=== PATIENT | male | born 1945 | race Caucasian/White ===

== ENCOUNTER 2016-07-14 11:05 | Emergency (ER) | payer MEDICARE, BC, OTHER ==
[~2016-07-14 11:05] MED LIST: APRES25 PO; CELEBREX2 PO; CORDARONE PO; COZ50 PO; KAPIDEX60 MG PO; LEVAQUIN750 MG PO; LIPITOR40 PO; LOP25 PO; NASONEX NAS; NEUR300 PO; NITROSTAT0.4 MG SL; NORV10 PO; NORV5 PO; PEP20 PO; PLAVIX PO; PRAVAC PO; PROTONIX PO; TOPXL25 PO; XARELTO15 MG PO; [UNRECOGNIZED DRUG - OTHER] OP
[2016-07-14 11:59] LABS: BASOPHILS 0.2 %; BASOPHILS ABSOLUTE 0.01 10/3/uL (0.0-0.16); EOSINOPHILS 2.3 %; EOSINOPHILS ABSOLUTE 0.13 10/3/uL (0.0-0.53); ER CBC TAT 0 Hrs 07 Mins; HEMATOCRIT 42.9 % (40.0-51.0); HEMOGLOBIN 15.4 g/dL (13.6-17.8); IMMATURE GRANULOCYTES 0.5 %; IMMATURE GRANULOCYTES ABSOLUTE 0.03 10/3/uL (0.0-0.11); LYMPHOCYTES 27.6 %; LYMPHOCYTES ABSOLUTE 1.55 10/3/uL (0.67-4.30); MEAN CORPUS HGB CONC 35.9 g/dL (32.0-36.0); MEAN CORPUSCULAR HEMOGLOB 31.9 pg (26.0-34.0); MEAN CORPUSCULAR VOLUME 88.8 fL (80-100); MEAN PLATELET VOLUME 10.7 fL (9.2-13.0); MONOCYTES 13.2 %; MONOCYTES ABSOLUTE 0.74 10/3/uL (0.21-1.20); NEUTROPHILS 56.2 %; NEUTROPHILS ABSOLUTE 3.16 10/3/uL (2.02-8.40); PLATELET COUNT 187 10/3/uL (150-400); RBC DISTRIBUTION WIDTH 12.6 % (12.0-16.0); RED CELL COUNT 4.83 10/6/uL (4.7-6.1); WHITE BLOOD CELLS 5.6 10/3/uL (4.5-10.5)
[2016-07-14 12:00] LABS: MANUAL DIFF NO %
[2016-07-14 12:09] LABS: INTERNATIONAL NORMAL RATI 1.5 UNITS (-)
[2016-07-14 12:12] LABS: PROTIME (NOT ORD) 17.8 SEC (12.0-14.5)
[2016-07-14 12:21] LABS: A/G RATIO 0.9 (0.7-1.9); ALBUMIN 3.5 G/DL (3.5-5.0); ALKALINE PHOSPHATASE 71 U/L (45-117); BUN (BLOOD UREA NITROGEN) 16 MG/DL (6-23); CALCIUM, SERUM 9.1 MG/DL (8.5-10.4); CHLORIDE, SERUM 105 MMOL/L (96-112); CO2 (CARBON DIOXIDE) 25 MMOL/L (24-34); GFR AFRICAN AMERICAN 50 ML/MIN (>=60); GFR NON AFRICAN AMERICAN 43 ML/MIN (>=60); GLOBULIN 3.7 G/DL (2.5-4.1); GLUCOSE, SERUM 133 MG/DL (60-99); POTASSIUM, SERUM 3.9 MMOL/L (3.5-5.3); SGOT(AST) 27 U/L (5-40); SGPT(ALT) 43 U/L (5-65); SODIUM, SERUM 140 MMOL/L (135-148); TOTAL BILIRUBIN 1.3 MG/DL (0-1.2); TOTAL PROTEIN 7.2 G/DL (6.0-8.5); TROPONIN I 0.03 NG/ML (<0.05)
[2016-11-12] MEDS ORDERED: PEP20 PO (14:37)
[2016-11-12] MEDS ORDERED: COLCH6 PO (14:38)
[2016-11-12] MEDS ORDERED: NASONEX NAS (14:57)
[2017-01-11] MEDS ORDERED: LIPITOR40 PO (19:22)
[2017-01-11] MEDS ORDERED: PLAVIX PO (19:23)
[2017-01-11] MEDS ORDERED: PEP10 PO (19:23)
[2017-01-11] MEDS ORDERED: TOPXL25 PO (19:23)
[2017-01-11] MEDS ORDERED: XARELTO15 MG PO (19:23)
[2017-01-11] MEDS ORDERED: NEUR600 PO (19:23)
[2017-01-11] MEDS ORDERED: SYSTANE OPH (19:24)
[2017-01-11] MEDS ORDERED: NORV10 PO (19:24)
[2017-01-12] MEDS ORDERED: NORCO1 TA2 PO (18:59)
[2017-01-31] MEDS ORDERED: CLEOCIN300 MG PO (20:38)
[2017-01-31] MEDS ORDERED: ULTRAM50 PO (20:38)
[2017-02-05] MEDS ORDERED: ZYVOXPO PO (13:52)
[2017-02-05] MEDS ORDERED: PRIN10 PO (13:52)
== END 2016-07-14 13:58 | disposition home or self-care (01) ==
LOC: ER 11:05
PROVIDERS: Emergency Medicine
DX: R07.89 Other chest pain (principal); I10 Essential (primary) hypertension; I48.91 Unspecified atrial fibrillation; Z95.1 Presence of aortocoronary bypass graft; Z95.5 Presence of coronary angioplasty implant and graft; Z85.528 Personal history of other malignant neoplasm of kidney; Z90.5 Acquired absence of kidney; Z79.899 Other long term (current) drug therapy
CPT/HCPCS: 71010; 80053; 83880; 84484; 85025; 85610; 93005; 99285

== ENCOUNTER 2017-01-27 10:18 | Emergency (ER) | payer MEDICARE, BC, OTHER ==
[~2017-01-27 10:18] MED LIST changes: +COLCH6 PO; +NEUR600 PO; +NORCO1 TA2 PO; +PEP10 PO; +SYSTAN1 OPH
== END 2017-01-27 13:00 | disposition home or self-care (01) ==
LOC: ER 10:18
PROC: 0HQGXZZ Repair Left Hand Skin, External Approach (ICD-10-PCS; principal; 2017-01-27)
DX: S61.412A Laceration without foreign body of left hand, initial encounter (principal); Z79.899 Other long term (current) drug therapy; W31.2XXA Contact with powered woodworking and forming machines, initial encounter
CPT/HCPCS: 90471; 90714; 99282